=== PATIENT | female | born 1985 | race Two or more races ===

== ENCOUNTER 2025-07-23 05:21 | Inpatient (IN) | payer MEDICAID, SELFPAY ==
[2025-07-20 10:17] LABS: Basophils # (Auto) 0.0 Thou/mm3 (0.0-0.2); Basophils % (Auto) 0 % (0-2.5); Eosinophils # (Auto) 0.0 Thou/mm3 (0.0-0.5); Eosinophils % (Auto) 1 % (0-10); Hematocrit 38.5 % (36.0-46.0); Hemoglobin 13.0 g/dL (12.0-16.0); Immature Granulocytes Auto 0.04 Thou/mm3 (0.00-0.00); Lymphocytes # (Auto) 1.5 Thou/mm3 (1.0-4.8); Lymphocytes % (Auto) 24 % (10-50); Mean Corpuscular HGB Conc 33.8 g/dl (31.0-37.0); Mean Corpuscular Hemoglobin 30.8 pg (25.0-35.0); Mean Corpuscular Volume 91 fL (80-100); Monocytes # (Auto) 0.3 Thou/mm3 (0.0-0.8); Monocytes % (Auto) 5 % (0-12); Neutrophils # (Auto) 4.4 Thou/mm3 (1.8-7.7); Neutrophils % (Auto) 69 % (37-80); Nucleated Red Blood Cell # 0.00 Thou/mm3 (0.00-0.00); Nucleated Red Blood Cell % 0 /100 WBC (0); Platelet Count 123 Thou/mm3 (140-440); RDW Standard Deviation 50.2 fL (36.4-46.3); Red Blood Count 4.22 Miln/mm3 (4.00-5.20); White Blood Count 6.3 Thou/mm3 (3.6-11.0)
[2025-07-20 10:23] LABS: INR 1.0 (0.9-1.3); Partial Thromboplastin Time 26.3 Seconds (22.0-36.0); Prothrombin Time 10.5 Seconds (9.0-12.2)
[2025-07-20 10:45] LABS: Alanine Aminotransferase 9 U/L (10-49); Albumin, Serum 3.4 gm/dL (3.5-5.0); Albumin/Globulin Ratio 1.4 (1.2-2.2); Alkaline Phosphatase 123 U/L (46-116); Anion Gap 12 (7-16); Aspartate Amino Transferase 11 U/L (0-34); BUN/Creatinine Ratio 18 Ratio (12-20); Bilirubin,Total 0.3 mg/dL (0.3-1.2); Blood Urea Nitrogen 11 mg/dL (9-23); Calcium 9.0 mg/dL (8.3-10.6); Calcium (Corrected) 9.5 mg/dL (8.5-10.1); Carbon Dioxide 22.4 mMol/L (20.0-31.0); Chloride 106 mMol/L (98-107); Creatinine (Component) 0.6 mg/dL (0.6-1.3); Globulin 2.4 gm/dL (2.3-3.5); Glucose 123 mg/dL (74-106); Osmolality,Calculated 279 (275-295); Potassium 3.6 mMol/L (3.4-5.1); Sodium 140 mMol/L (136-145); Total Protein 5.8 gm/dL (5.7-8.2); eGFR > 60 See Note
[2025-07-20 10:47] LABS: Syphilis Nonreactive (Nonreactive)
--- NOTE | 2025-07-21 07:59 | ESHP_ITS ---
RE: ELEAZAR PATRICIA : 1985 DATE OF ADMISSION: 07/23/2025 HISTORY OF PRESENT ILLNESS: This is a 40-year-old 4, para 3-0-0-3 with due date of 07/28 with intrauterine at 39 weeks and 2 days who presents for repeat delivery. She is also multiparous and desires voluntary sterilization. She reports normal movement. She denies any leaking or bleeding. She has occasional contractions. She was diagnosed with gestational diabetes at 12 weeks' gestation and has been on an ADA diet and been well controlled throughout her . She has had serial ultrasounds by [facility], which have shown normal anatomy. ALLERGIES: NO KNOWN DRUG ALLERGIES. MEDICATIONS: 1. multivitamin 1 p.o. daily. 2. Aspirin 81 mg 1 p.o. daily. 3. Loratadine 10 mg 1 p.o. daily p.r.n. allergies. PAST MEDICAL HISTORY: Gestational thrombocytopenia. SOCIAL HISTORY: She denies any alcohol, drug use or smoking. PAST MEDICAL HISTORY: Mother migraine headaches. OB HISTORY: 2005, 40-week normal vaginal delivery 7 pounds 4 ounce female. No complications. 2012, 40-week normal vaginal delivery 7 pound 12 ounce male, no complications. 2016, 39 weeks delivery, 9 pound 2 ounce male, no complications. PAST SURGICAL HISTORY: Colonoscopy and delivery. REVIEW OF SYSTEMS: She denies any chest pain, palpitations, cough, fever, or shortness of breath or lower extremity pain. She denies any headache, change in vision or right upper quadrant pain. PHYSICAL EXAMINATION: VITAL SIGNS: Blood pressure 111/65, heart rate 88, respirations 18, temperature 98.2, weight 236 pounds. HEENT: Oropharynx and sclerae are clear. LUNGS: Clear to auscultation bilaterally. HEART: Regular rate and rhythm. ABDOMEN: Gravid term size. Old Pfannenstiel scar noted. EXTREMITIES: Nontender. SKIN: No gross rashes or lesions. NEUROLOGIC: No focal deficit. ASSESSMENT AND PLAN: Intrauterine at 39 weeks and 2 days on 07/23. Previous delivery, elects repeat delivery, multiparity, desires voluntary sterilization. PLAN: delivery and bilateral tubal ligation. Informed consent was obtained. The patient was made aware of the risks, complications, alternatives, and benefits of the proposed procedure and she agrees. She is aware of the failure rate and increased risk of tubal ectopic gestation if occurs. DT: 07:42:12 TT: 07:58:00 Ref: [id number] - TID: [id number] MTDD
[2025-07-23] VITALS (26 sets, daily range): BP systolic 72–134; BP diastolic 50–86; PULSE 53–105; RESP 14–21; TEMP 36.2–36.7; O2SAT 94–98; BMI 39.1
[2025-07-23 06:12] LABS: Basophils # (Auto) 0.0 Thou/mm3 (0.0-0.2); Basophils % (Auto) 0 % (0-2.5); Eosinophils # (Auto) 0.1 Thou/mm3 (0.0-0.5); Eosinophils % (Auto) 1 % (0-10); Hematocrit 38.8 % (36.0-46.0); Hemoglobin 13.4 g/dL (12.0-16.0); Immature Granulocytes Auto 0.04 Thou/mm3 (0.00-0.00); Lymphocytes # (Auto) 2.2 Thou/mm3 (1.0-4.8); Lymphocytes % (Auto) 31 % (10-50); Mean Corpuscular HGB Conc 34.5 g/dl (31.0-37.0); Mean Corpuscular Hemoglobin 31.0 pg (25.0-35.0); Mean Corpuscular Volume 90 fL (80-100); Monocytes # (Auto) 0.4 Thou/mm3 (0.0-0.8); Monocytes % (Auto) 6 % (0-12); Neutrophils # (Auto) 4.4 Thou/mm3 (1.8-7.7); Neutrophils % (Auto) 62 % (37-80); Nucleated Red Blood Cell # 0.00 Thou/mm3 (0.00-0.00); Nucleated Red Blood Cell % 0 /100 WBC (0); Platelet Count 129 Thou/mm3 (140-440); RDW Standard Deviation 48.9 fL (36.4-46.3); Red Blood Count 4.32 Miln/mm3 (4.00-5.20); White Blood Count 7.0 Thou/mm3 (3.6-11.0)
[2025-07-23] MEDS: ceFAZolin/D5W 2 GM IV 2 GM/100 ML BAG IV (07:07)
[2025-07-23] MEDS: FAMOTIDINE INJ 10 MG/ML VIAL 2 ML 20 MG IV (07:18)
[2025-07-23] MEDS: METOCLOPRAMIDE INJ 5 MG/ML VIAL 2 ML 10 MG IVP (07:18)
--- NOTE | 2025-07-23 07:35 | PD.LDDS ---
DS: Providers Provider Date of admission: 07/23/25 05:21 Primary care physician: VAMSI Guillory Admitting Provider: Grover Chaney MD Attending Provider on Admission: Grover Chaney MD Attending Provider on DC: Grover Chaney MD Discharging Provider: Grover Chaney MD DS: Diagnosis Discharge Diagnosis (1) delivery delivered: Status: Acute Problem List Completed Was Problem List Reviewed/Reconciled?: Yes Summary/Hosp Course Peripartum Data Procedures: Procedures Operation Date: 07/23/25 07:45 <No data on this case meets the specified criteria> Time Spent with Patient Time attestation: Total time spent providing and/or coordinating discharge services: Exam Vital Signs Temp Pulse Resp BP Pulse Ox O2 Del Method 98.1 F 86 18 134/86 H 97 Room Air 07/23/25 05:50 07/23/25 05:28 07/23/25 05:28 07/23/25 05:28 07/23/25 07:23 07/23/25 05:28 Discharge Plan Plan Patient Disposition: HOME (Self Care) Patient condition on transfer: Stable Prescriptions/Referrals Prescriptions/Med Rec: New ibuprofen 600 mg tablet 600 mg PO Q6H PRN (Reason: pain) Qty: 30 0RF Continued famotidine 40 mg tablet 40 mg PO DAILY Patient Comments: TAKE 1 TABLET BY MOUTH ONCE A DAY BEFORE MEALS docusate sodium 100 mg capsule 100 mg PO BID Patient Comments: TAKE 1 CAPSULE BY MOUTH TWICE A DAY DIRECTED TO PREVENT CONSTIPATION. PNV no.95-ferrous fumarate-FA [] 28 mg iron- 800 mcg tablet 1 tab PO DAILY Patient Comments: TAKE 1 TABLET BY MOUTH EVERY DAY Discontinued aspirin 81 mg tablet,delayed release (DR/EC) 81 mg PO DAILY Patient Comments: TAKE 1 TABLET BY MOUTH EVERY DAY Referrals: Terri Queen FNP [Primary Care Provider] Patient/Caregiver Discharge Instructions Discharge Activity: activity as tolerated Other Discharge Activity Instructions:: Follow up office 1 week. She already has a Rx for [place]. Education Materials: C Section Dc Print Language: Vincentian Stand Alone Forms: Anny Award Info., Patient Portal Info Letter Discharge Order Discharge Orders: Discharge (Routine); Ordered 07/25/25 Ordered By: Grover Chaney Planned Discharge Date 07/25/25
--- NOTE | 2025-07-23 07:36 | PD.GYNPROC ---
Operative Note - VERIFICATION SPECIALIST Procedure Date of procedure: 07/23/25 Procedure Performed: Repeat Low Transverse Via Pfanensteil Skin Incision Bilateral salpingectomy Indication: Intrauterine at 39 weeks and 2 days Previous delivery elects repeat delivery Multiparity desires voluntary sterilization Pre-Op diagnosis: Intrauterine at 39 weeks and 2 days Previous delivery elects repeat delivery Multiparity desires voluntary sterilization Post-Op diagnosis: Intrauterine at 39 weeks and 2 days Previous delivery elects repeat delivery Multiparity desires voluntary sterilization Adenomyosis of the uterus. Anesthesia type: Spinal Procedure description: After proper informed consent was obtained and the patient was made aware of the risks, complications, alternatives and benefits of the proposed procedure she was taken to the operating room where she underwent induction of spinal anesthesia. She was prepped and draped in the usual sterile fashion. A timeout was performed.? A Pfannenstiel skin incision was made with the scalpel and carried through to the underlying layer of fascia with the Bovie. The fascia was nicked in the midline incision and the incision was extended bilaterally with the Bovie. The inferior aspect of the fascial incision was grasped with Payton clamps elevated and the underlying rectus muscle dissected off with the Bovie. The superior aspect the fascial incision was grasped with Payton clamps elevated and the underlying rectus muscle dissected off with the Bovie. The rectus muscles were in the midline. The peritoneum was grasped between 2 Burnett clamps and entered sharply with the Metzenbaum scissors. The peritoneum was extended superiorly and inferiorly with good visualization of the bladder. The vesicouterine peritoneum was incised transversely and the bladder flap created digitally. A [place] blade was inserted. A low transverse incision was made in the uterus with a scapel and the incision was extended digitally. The male infant's head delivered and the mouth and nose were suctioned with the bulb suction. The shoulder and body delivered atraumatically. The cord was clamped after 30 second delayed cord clamping and the cord was cut.? The infant was handed off to the waiting Pediatric staff, cord blood was collected for lab testing. The placenta was removed complete and intact. The uterus was exteriorized and cleared of all clots and debris. The uterine incision was closed with #1-0 chromic catgut suture in a running interlocking fashion. A second layer of the same suture was used to imbricate the first layer and obtain excellent hemostasis. The vesicouterine peritoneum was closed with 2-0 chromic catgut suture in a running fashion. The firm uterus was returned to the abdomen. The gutters were cleared of all clots and debris. The peritoneum was closed with 0 chromic catgut suture in running fashion. The rectus muscle was closed with 0 chromic catgut suture. The fascia was closed with 0 Vicryl beginning at each angle and ending in the center in a running fashion. The subcutaneous tissue was irrigated with warmed normal saline solution and found to be hemostatic. The subcutaneous tissue was closed with 2-0 chromic catgut suture in a running fashion. The skin was closed with 4-0 Monocryl. A Dermabond Prineo dressing was applied and a sterile pressure dressing was applied.? She tolerated the procedure well. Counts were correct. I discussed with the patient the nature of her condition, intraoperative findings and expectation for recovery all? questions answered. Specimen: left tube and right tube Estimated blood loss (ml): 900 Findings: Live baby boy Apgars 8 and 9 Weight 8 lbs 9 oz. Placenta removed complete intact Myometrial hypertrophy consistent with Adenomyosis. Ovaries and tubes grossly within normal limits Complications: none Surgical staff MAHENDRA Ray Dr Surgeon Operation Date: 07/23/25 07:45 <No data on this case meets the specified criteria> Diagnosis Problem List Completed Was Problem List Reviewed/Reconciled?: Yes
--- NOTE | 2025-07-23 09:48 | PC.NURSE ---
notified lab that patient has never had any blood transfusion.
[2025-07-23 12:46] LABS: Basophils # (Auto) 0.0 Thou/mm3 (0.0-0.2); Basophils % (Auto) 0 % (0-2.5); Eosinophils # (Auto) 0.0 Thou/mm3 (0.0-0.5); Eosinophils % (Auto) 0 % (0-10); Hematocrit 37.9 % (36.0-46.0); Hemoglobin 12.7 g/dL (12.0-16.0); Immature Granulocytes Auto 0.06 Thou/mm3 (0.00-0.00); Lymphocytes # (Auto) 1.0 Thou/mm3 (1.0-4.8); Lymphocytes % (Auto) 9 % (10-50); Mean Corpuscular HGB Conc 33.5 g/dl (31.0-37.0); Mean Corpuscular Hemoglobin 30.6 pg (25.0-35.0); Mean Corpuscular Volume 91 fL (80-100); Monocytes # (Auto) 0.3 Thou/mm3 (0.0-0.8); Monocytes % (Auto) 3 % (0-12); Neutrophils # (Auto) 9.5 Thou/mm3 (1.8-7.7); Neutrophils % (Auto) 88 % (37-80); Nucleated Red Blood Cell # 0.00 Thou/mm3 (0.00-0.00); Nucleated Red Blood Cell % 0 /100 WBC (0); Platelet Count 114 Thou/mm3 (140-440); RDW Standard Deviation 49.3 fL (36.4-46.3); Red Blood Count 4.15 Miln/mm3 (4.00-5.20); White Blood Count 10.8 Thou/mm3 (3.6-11.0)
[2025-07-23] MEDS: OXYTOCIN in NS 20 units 20 UNIT/1,000 ML BAG 125 UNIT IV (15:54)
--- NOTE | 2025-07-23 16:28 | OBDSUM_ITS ---
Data (Allison) Data : 4 Delivery Data (Allison) Labor Data Induction/Augmentation Agent: None ROM date: 07/23/25 ROM time: 08:09 Amniotic membrane rupture type: Artificial Amniotic fluid description: Clear Delivery Data EDC: 07/28/25 EDC calculated by:: LMP/early US confirmation delivery date: 07/23/25 [place] delivery time: 08:10 Gestational age (weeks): 39 Gestational age (days): 2 Placenta delivery date: 07/23/25 Placenta delivery time: 08:10 Delivered by: Grover Chaney Delivery nurse: Amita Roth RN [place] nurse: Yusra Israel RN Piece Marker [employer] at delivery: No Support person(s) at delivery: fob Delivery Method Delivery method: Low Transverse Presentation: Vertex Anesthesia Type Anesthesia Type: Spinal Anesthesia type: Spinal Placenta Placenta delivery description: Manual Removal Cord blood sent to lab: Yes cord blood collection: Cord Blood Type Episiotomy Episiotomy description: None EBL Estimated blood loss (ml): 900 Umbilical Cord cord description: 3 Vessels Additional Procedures None Complications Complications: None Data (Allison) Data order: 1 's gender: Male Identification band number: [id number] weight (gms): 8 lb 8.863 oz Weight (pounds): 8 lbs and 8.9 ozs length: 20 in 1 minute: 9 5 minutes: 9
[2025-07-24] VITALS: BP 96/60; PULSE 61; RESP 18; TEMP 36.8
[2025-07-24 04:15] VITALS: BP 94/61; PULSE 58; RESP 18; TEMP 36.7; O2SAT 95
[2025-07-24] MEDS: SIMETHICONE 80 MG CHEW PO ×2 (04:27→08:27)
--- NOTE | 2025-07-24 07:08 | ESPR_ITS ---
RE: ELEAZAR PATRICIA : 1985 DATE OF SERVICE: 07/24/2025 Postop day #1. The patient denies any problem or complaint. She is voiding. She is ambulating. She is tolerating regular diet. She is passing flatus. She denies any excessive vaginal bleeding. She denies any dizziness or lightheadedness. She denies any chest pain, palpitations, shortness of breath or lower extremity pain. OBJECTIVE: Vital Signs: Blood pressure is 94/61, heart rate 58, respirations 18, temperature is 98.0, pulse oximetry is 95% on room air. Lungs: Clear to auscultation bilaterally. Heart: Regular rate and rhythm. Abdomen: Nondistended. Fundus is firm. Dressing dry and intact. Extremities: Nontender. Hemoglobin pre-delivery is 13.4, post-delivery is 12.7. ASSESSMENT: day number 1, status post delivery and bilateral salpingectomy, gestational thrombocytopenia with stable platelet count. PLAN: Discharge home tomorrow. Remove dressing. executive search consultant. Remove IV. Possible discharge home tomorrow. DT: 06:56:37 TT: 07:07:00 Ref: [id number] - TID: [id number]
[2025-07-24 07:50] VITALS: BP 100/58; PULSE 72; RESP 17; RESP 96; TEMP 36.8; O2SAT 96
[2025-07-24 08:00] VITALS: BP 100/58; PULSE 72; RESP 17; TEMP 36.8; O2SAT 96
[2025-07-24] MEDS: IBUPROFEN TAB 400 MG TABLET 800 MG PO ×2 (08:22→16:46)
[2025-07-24] MEDS: Milk Of Magnesia Susp 30 ML UDC PO (08:22)
[2025-07-24] MEDS: DOCUSATE SOD 100 MG CAPSULE PO (08:23)
[2025-07-24] MEDS: ENOXAPARIN SOD INJ 40 MG/0.4 ML SYRINGE SC (08:25)
[2025-07-24 11:06] VITALS: BP 110/73; PULSE 76; PULSE 96; RESP 17; TEMP 36.4; TEMP 37.1; O2SAT 96
[2025-07-24 20:00] VITALS: BP 99/64; PULSE 72; RESP 18; TEMP 36.4; O2SAT 95
[2025-07-25] MEDS: IBUPROFEN TAB 400 MG TABLET 800 MG PO ×2 (01:04→11:14)
[2025-07-25 03:49] VITALS: BP 99/63; PULSE 69; RESP 16; TEMP 36.5; O2SAT 96
--- NOTE | 2025-07-25 07:32 | ESPR_ITS ---
RE: ELEAZAR PATRICIA : 1985 DATE OF SERVICE: 07/25/2025 SUBJECTIVE: Postop day #2. The patient denies any problems or complaints. She is voiding and ambulating and tolerating her diet. She is passing flatus. She denies any excessive vaginal bleeding. She denies any dizziness or lightheadedness. She denies any chest pain, palpitations, shortness of breath or lower extremity pain. OBJECTIVE: Vital Signs: Blood pressure 99/63, heart rate 69, respirations 16, temperature is 97.7, pulse oximetry is 96% on room air. Lungs: Clear to auscultation bilaterally. Heart: Regular rate and rhythm. Abdomen: Incision clear and intact. Fundus is firm. Extremities: Nontender. ASSESSMENT: Postop day #2 status post delivery and bilateral salpingectomy. PLAN: Discharge home. Discharge instructions given. Follow up in the office in 1 week. DT: 06:16:20 TT: 07:31:00 Ref: [id number] - TID: [id number]
[2025-07-25] MEDS: DOCUSATE SOD 100 MG CAPSULE PO (08:09)
[2025-07-25] MEDS: ENOXAPARIN SOD INJ 40 MG/0.4 ML SYRINGE SC (08:09)
[2025-07-25 08:15] VITALS: BP 116/74; PULSE 88; RESP 18; TEMP 36.7; O2SAT 97
== END 2025-07-25 11:21 | disposition home or self-care (01) | DRG 539 ==
LOC: S4SX 06:21 → S4NX 07:30
PROVIDERS: Admitting Provider Specialist; PCP Nurse Practitioner Family; Visit Provider Specialist
PROC: 0UL70ZZ Occlusion of Bilateral Fallopian Tubes, Open Approach (ICD-10-PCS; CPT 59514; principal; 2025-07-23 07:30)
DX: O34.211 Maternal care for low transverse scar from previous cesarean delivery (principal); Z30.2 Encounter for sterilization; Z37.0 Single live birth; Z3A.39 39 weeks gestation of pregnancy; O24.429 Gestational diabetes mellitus in childbirth, unspecified control
CPT/HCPCS: 36415; 80053; 85025; 85610; 85730; 86780; 86850; 86900; 86901; A4217; A4314; A4649; J0689; J1100; J1650; J2274; J2371; J2405; J2590; J2765; J3010; J3490; S0191; A9270; J2270